=== PATIENT | female | born 1945 | race American Indian/Alaskan Native ===

== ENCOUNTER 2017-08-26 13:10 | Outpatient (CLI) | payer BC ==
--- NOTE | 2017-08-26 16:28 | Mammography Report ---
BILATERAL MAMMOGRAM: FINDINGS: There are scattered fibroglandular densities (approximately 25%-50% glandular). No mass, distortion, suspicious calcification, or skin change is seen. No significant changes when compared to prior exam in April 2015. CAD was utilized. IMPRESSION: Negative mammogram. There is no mammographic evidence of malignancy. RECOMMENDATION: Follow-up per ACS guidelines. BI-RADS CATEGORY: 1 = Negative ACR BI-RADS MAMMOGRAPHIC CODES: 0 = Needs additional imaging evaluation; 1 = Negative; 2 = Benign; 3 = Probably benign; 4 = Suspicious; 5 = Malignant; 6 = Known biopsy-proven malignancy COMMENT: 1. Dense breast tissue, i.e., adenosis, fibrocystic changes, etc., may obscure an underlying neoplasm. 2. Approximately 10% of cancers are not detected with mammography. 3. A negative mammography report should not delay biopsy if a clinically suspicious mass is present. COMMENT: Patient follow-up letters are generated in [employer].
== END 2017-08-26 13:11 | disposition home or self-care (01) ==
LOC: MAMMO 13:10
PROVIDERS: ATTEND Obstetrics & Gynecology
DX: Z12.31 Encounter for screening mammogram for malignant neoplasm of breast (principal)
CPT/HCPCS: 77067; G0202

== ENCOUNTER 2019-02-09 10:05 | Outpatient (CLI) | payer BC ==
--- NOTE | 2019-02-09 15:16 | Mammography Report ---
BILATERAL DIGITAL SCREENING MAMMOGRAM with CAD: 02/09/19 10:05:00 CLINICAL: Routine screening. COMPARISON:08/26/17 FINDINGS: The breasts are heterogeneously dense, which may obscure small masses. No mass, architectural distortion or suspicious calcifications. IMPRESSION: No mammographic evidence of malignancy. BI-RADS CATEGORY: 1 - - Negative RECOMMENDATION: Routine mammographic screening in one year. COMMENT: Patient follow-up letters are generated by our [employer] application.
== END 2019-02-09 10:06 | disposition home or self-care (01) ==
LOC: MAMMO 10:05
PROVIDERS: ATTEND Obstetrics & Gynecology
DX: Z12.31 Encounter for screening mammogram for malignant neoplasm of breast (principal)
CPT/HCPCS: 77067

== ENCOUNTER 2020-02-26 09:38 | Outpatient (CLI) | payer BC, MEDICARE ==
--- NOTE | 2020-02-26 11:14 | Mammography Report ---
DIGITAL SCREENING MAMMOGRAM WITH CAD, 02/26/2020 INDICATION: Routine screening mammography. TECHNIQUE: Digital bilateral 2D mammography was obtained in the craniocaudal and mediolateral obliq ue projections. This examination was interpreted with the benefit of Computer-Aided Detection analysi s. COMPARISON: 02/09/2019, 08/26/2017 FINDINGS: Breast Density: The breasts are heterogeneously dense, which may obscure small masses. There is no evidence of dominant mass, suspicious calcifications or architectural distortion in eithe r breast. IMPRESSION: Follow up recommendation: Routine yearly BI-RADS Category 1: Negative. A "normal" or negative report should not discourage follow up or biopsy of a clinically significant f inding. A written summary of these findings will be mailed to the patient. The patient will be entered into a mammography reporting system which will generate a reminder letter for the patient's next appointmen t at the appropriate interval. The [employer] recommends yearly mammograms starting at age 40 and continuing as l deangelo as a woman is in good health. Breast MRI is recommended for women with an approximate 20-25% or greater lifetime risk of breast cancer, including women with a strong family history of breast or ova millie cancer or who have been treated for Hodgkin's disease. Signer Name: Martell Gill MD Signed: 02/26/2020 11:09 AM Workstation Name: [id number]
--- NOTE | 2020-02-26 16:35 | Mammography Report ---
BONE DEXA CLINICAL: Postmenopausal TECHNIQUE: 2 site bone DEXA performed on an Hologic scanner. FINDINGS: The average BMD of the lumbar spine L1-L4 is 1.074g/cm squared with a T score of 0.1 and a Z score of 1.8. The average total BMD of the left hip is 0.857 g/cm squared with a T score of -0.7and a Z score of 0. 1. IMPRESSION: 1. WHO classification: Normal with low fracture risk based on spine measurements. 2. WHO classification normal with low fracture risk based on left hip measurements. RECOMMENDATION: Clinical correlation and routine screening. Definitions: BMD equal bone mineral density T score = BMD related to peak bone mass of young adult ([place] expressed an standard deviation) Z score = age-matched BMD expressed in SD World health organization (WHO) diagnostic criteria Normal T score greater than equal to 1 standard deviation Osteopenia T score between -1 and -2.4 standard deviation Osteoporosis T score -2.5 standard deviation or below. Note: BMD is not the only risk factor for fracture; also consider factors such as the patient's age, risk of falling, previous osteoporotic fracture, family history of osteoporotic fractures, current sm oker and low body weight. Z scores are not calculated if greater than 80 years of age. Signer Name: Benita Wilkerson MD Signed: 02/26/2020 4:30 PM Workstation Name: [id number]
== END 2020-02-26 09:39 | disposition home or self-care (01) ==
LOC: MAMMO 09:38
PROVIDERS: ATTEND Obstetrics & Gynecology
DX: Z12.31 Encounter for screening mammogram for malignant neoplasm of breast (principal)
CPT/HCPCS: 77067; 77080

== ENCOUNTER 2021-08-28 12:55 | Outpatient (CLI) | payer BC, MEDICARE ==
--- NOTE | 2021-08-29 17:55 | Mammography Report ---
DIGITAL SCREENING MAMMOGRAM WITH CAD, 08/28/2021 CLINICAL INFORMATION / INDICATION: Routine screening mammography. TECHNIQUE: Digital bilateral 2D mammography was obtained in the craniocaudal and mediolateral obliqu e projections. This examination was interpreted with the benefit of Computer-Aided Detection analysis . COMPARISON: 02/26/2020, 02/09/2019 FINDINGS: Breast Density: There are scattered areas of fibroglandular density. No dominant mass, suspicious calcifications, or architectural distortion in either breast. No interval change. IMPRESSION: No mammographic evidence of malignancy. Follow up recommendation: Routine yearly BI-RADS Category 1: Negative. A "normal" or negative report should not discourage follow up or biopsy of a clinically significant f inding. A written summary of these findings will be mailed to the patient. The patient will be entered into a mammography reporting system which will generate a reminder letter for the patient's next appointmen t at the appropriate interval. The [employer] recommends yearly mammograms starting at age 40 and continuing as l deangelo as a woman is in good health. Breast MRI is recommended for women with an approximate 20-25% or greater lifetime risk of breast cancer, including women with a strong family history of breast or ova millie cancer or who have been treated for Hodgkin's disease. Signer Name: Benita Wilkerson MD Signed: 08/29/2021 5:51 PM Workstation Name: [email or web address]
== END 2021-08-28 12:56 | disposition home or self-care (01) ==
LOC: MAMMO 12:55
PROVIDERS: ATTEND Obstetrics & Gynecology
DX: Z12.31 Encounter for screening mammogram for malignant neoplasm of breast (principal)
CPT/HCPCS: 77067